=== PATIENT | female | born 1990 | race African-American/Black ===

== ENCOUNTER 2016-12-06 19:07 | Emergency (ER) | payer OTHER ==
[~2016-12-06] VITALS: Ht 162.6 cm; Wt 91.7 kg
[2016-12-06 19:12] VITALS: BP 134/78
[2016-12-06] MEDS ORDERED: NACL 0.9% 1,000 ML IV SCH (19:38)
[2016-12-06] MEDS ORDERED: MORPHINE SULFATE 4 MG/ML SYR IVP ONE (19:40)
[2016-12-06] MEDS ORDERED: ONDANSETRON 4 MG/2 ML VIAL IVP ONE (19:40)
[2016-12-06 20:15] LABS: EOSINOPHILS # (AUTO) 0.1 K/uL (0-0.4); HEMOGLOBIN 13.7 g/dL (12.0-16.0); MONOCYTES # (AUTO) 0.7 K/uL (0.8-1.0); RED CELL DISTRIBUTION WIDTH 13.1 % (11.6-13.7)
[2016-12-06 20:21] LABS: ANION GAP 12.2 (8-16); BASOPHILS # (AUTO) 0.3 K/uL (0.00-0.22); BASOPHILS % (AUTO) 3.8 % (0.0-2.0); CARBON DIOXIDE 28.1 mmol/L (21-32); CREATININE 0.9 mg/dL (0.6-1.3); EOSINOPHILS % (AUTO) 1.4 % (0.0-4.0); HEMATOCRIT 41.5 % (36-48); LYMPHOCYTES # (AUTO) 4.1 K/uL (2.5-16.5); LYMPHOCYTES % (AUTO) 43.9 % (20.5-51.1); MEAN CORPUSCULAR HEMOGLOBIN 26 pg (27-31); MEAN CORPUSCULAR HGB CONC 33 g/dL (33-37); MEAN CORPUSCULAR VOLUME 78 fL (80-94); MONOCYTES % (AUTO) 7.8 % (1.7-9.3); NEUTROPHILS # (AUTO) 3.9 K/uL (1.8-7.7); NEUTROPHILS % (AUTO) 43.1 % (42.2-75.2); PLATELET COUNT (AUTO) 353 K/uL (140-450); POTASSIUM 4.3 mmol/L (3.5-5.1); RED BLOOD CELL COUNT(AUTO) 5.33 MIL/uL (4.20-5.40); WHITE BLOOD COUNT (AUTO) 9.1 K/uL (4.8-10.8)
[2016-12-06 20:27] LABS: ALBUMIN 3.4 g/dL (3.4-5.0); TOTAL BILIRUBIN 0.2 mg/dL (0.0-1.0)
[2016-12-06 21:08] VITALS: BP 120/76
== END 2016-12-06 21:08 | disposition home or self-care (01) ==
LOC: MED 19:07
DX: R10.30 Lower abdominal pain, unspecified (principal); R11.2 Nausea with vomiting, unspecified; R51 Headache; M79.1 Myalgia; R53.1 Weakness; Z88.6 Allergy status to analgesic agent
CPT/HCPCS: 36415; 80053; 81002; 81025; 82550; 83690; 85025; 96361; 96374; 96375; 99284; J2270; J2405

== ENCOUNTER 2017-04-17 15:04 | Emergency (ER) | payer OTHER ==
[~2017-04-17] VITALS: Ht 162.6 cm; Wt 86.2 kg
[2017-04-17 15:42] VITALS: BP 127/65
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
--- NOTE | 2017-04-17 17:30 | NUR ---
PATIENT AMBULATED TO OF 2
--- NOTE | 2017-04-17 18:05 | NUR ---
ALAYNA BELTRAN ER MD BYNUM
--- NOTE | 2017-04-17 18:20 | NUR ---
PT REQUESTING PAIN MEDICATION FOR HEADACHE. DR RICHEY NOTIFIED, NO ORDERS RECEIVED.
--- NOTE | 2017-04-17 19:00 | NUR ---
RECEIVED REPORT REPORT FROM PADMINI RN, TRANSFER OF CARE AT THIS TIME.
[2017-04-17 20:00] VITALS: BP 132/72
--- NOTE | 2017-04-17 20:00 | NUR ---
Patient discharged with v/s stable. Written and verbal after care instructions given and explained. Patient alert, oriented and verbalized understanding of instructions. Ambulatory with steady gait. All questions addressed prior to discharge. ID band removed. Patient advised to follow up with PMD. Rx of VALTREZ 1G AND FIORICET [id number] given. Patient educated on indication of medication including possible reaction and side effects. Opportunity to ask questions provided and answered.
== END 2017-04-17 20:00 | disposition home or self-care (01) ==
LOC: MED 15:04
DX: K12.0 Recurrent oral aphthae (principal); G44.209 Tension-type headache, unspecified, not intractable; R03.0 Elevated blood-pressure reading, without diagnosis of hypertension; Z88.5 Allergy status to narcotic agent
CPT/HCPCS: 99283

== ENCOUNTER 2017-06-07 12:00 | Emergency (ER) | payer OTHER ==
[~2017-06-07] VITALS: Ht 160 cm; Wt 89.4 kg
[2017-06-07 12:04] VITALS: BP 137/83
--- NOTE | 2017-06-07 12:09 | NUR ---
Pt taken to bed 4.
--- NOTE | 2017-06-07 12:10 | NUR ---
PATIENT PRESENTS TO ED WITH PRODUCTIVE COUGHING X 1 WEEK AND INTERMITTEN FEVER AND CHILLS X 2 WEEKS . PT.DENIES N/V/D; SKIN IS PINK/WARM/DRY; AAOX4 WITH EVEN AND STEADY GAIT; LUNGS CLEAR BL; HR EVEN AND REGULAR; PT DENIES ANY CP, SOB, OR AT THIS TIME; PATIENT STATES PAIN OF 0/10 AT THIS TIME; VSS; PATIENT POSITIONED FOR COMFORT; HOB ELEVATED; BEDRAILS UP X2; BED DOWN. ER MD MADE AWARE OF PT STATUS.
[2017-06-07 12:36] VITALS: BP 115/62
--- NOTE | 2017-06-07 12:37 | NUR ---
Patient discharged with v/s stable. Written and verbal after care instructions given and explained. Patient alert, oriented and verbalized understanding of instructions. Ambulatory with steady gait. All questions addressed prior to discharge. ID band removed. Patient advised to follow up with PMD. Rx of FLUNOASE AND AMOXICILLIN given. Patient educated on indication of medication including possible reaction and side effects. Opportunity to ask questions provided and answered.
== END 2017-06-07 12:37 | disposition home or self-care (01) ==
LOC: MED 12:00
DX: J06.9 Acute upper respiratory infection, unspecified (principal); H66.91 Otitis media, unspecified, right ear; Z88.5 Allergy status to narcotic agent
CPT/HCPCS: 99283

== ENCOUNTER 2017-09-12 21:22 | Emergency (ER) | payer OTHER ==
[~2017-09-12] VITALS: Ht 162.6 cm; Wt 79.4 kg
[2017-09-12 21:29] VITALS: BP 126/89
[2017-09-12 22:36] VITALS: BP 130/73
== END 2017-09-12 22:36 | disposition home or self-care (01) ==
LOC: MED 21:22
DX: K04.7 Periapical abscess without sinus (principal); Z88.6 Allergy status to analgesic agent
CPT/HCPCS: 99283

== ENCOUNTER 2018-01-31 09:05 | Emergency (ER) | payer OTHER ==
[~2018-01-31] VITALS: Ht 160 cm; Wt 76.7 kg
[2018-01-31 09:12] VITALS: BP 121/75
--- NOTE | 2018-01-31 09:21 | NUR ---
PT AMBULATED TO BED 7.
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
[2018-01-31] MEDS ORDERED: NACL 0.9% 1,000 ML IV ONE (10:10)
--- NOTE | 2018-01-31 10:23 | NUR ---
Patient to xray via w/c accompanied by nuclear plant instrument technician
[2018-01-31 10:30] LABS: BASOPHILS # (AUTO) 0.1 K/uL (0.00-0.22); BASOPHILS % (AUTO) 1.1 % (0.0-2.0); EOSINOPHILS # (AUTO) 0.1 K/uL (0-0.4); EOSINOPHILS % (AUTO) 1.4 % (0.0-4.0); HEMATOCRIT 43.8 % (36-48); HEMOGLOBIN 14.3 g/dL (12.0-16.0); LYMPHOCYTES # (AUTO) 2.2 K/uL (2.5-16.5); LYMPHOCYTES % (AUTO) 45.8 % (20.5-51.1); MEAN CORPUSCULAR HEMOGLOBIN 26 pg (27-31); MEAN CORPUSCULAR HGB CONC 33 g/dL (33-37); MEAN CORPUSCULAR VOLUME 79.3 fL (80-94); MONOCYTES # (AUTO) 0.4 K/uL (0.8-1.0); MONOCYTES % (AUTO) 7.3 % (1.7-9.3); NEUTROPHILS # (AUTO) 2.2 K/uL (1.8-7.7); NEUTROPHILS % (AUTO) 44.4 % (42.2-75.2); PLATELET COUNT (AUTO) 307 K/uL (140-450); RED BLOOD CELL COUNT(AUTO) 5.53 MIL/uL (4.20-5.40); RED CELL DISTRIBUTION WIDTH 13.3 % (11.6-13.7); WHITE BLOOD COUNT (AUTO) 4.9 K/uL (4.8-10.8)
--- NOTE | 2018-01-31 10:44 | NUR ---
BACK FROM X-RAY.
[2018-01-31 10:45] LABS: ANION GAP 10.8 (8-16); CARBON DIOXIDE 29.2 mmol/L (21-32); CREATININE 0.8 mg/dL (0.6-1.3)
[2018-01-31 10:52] LABS: ALBUMIN 3.5 g/dL (3.4-5.0); TOTAL BILIRUBIN 0.4 mg/dL (0.0-1.0)
--- NOTE | 2018-01-31 11:08 | NUR ---
PT STATED THAT SHE FEELS BETTER. STATED NO NAUSEA OR PAIN AT THIS TIME. LYING IN BED COMFORTABLY. NO CHANGE IN LOC. WILL CONTINUE TO MONITOR.
--- NOTE | 2018-01-31 12:19 | NUR ---
Patient discharged with v/s stable. Written and verbal after care instructions given and explained. Patient verbalized understanding. Ambulatory with steady gait. All questions addressed prior to discharge. Advised to follow up with PMD.
[2018-01-31 12:20] VITALS: BP 115/68
== END 2018-01-31 12:19 | disposition home or self-care (01) ==
LOC: MED 09:05
DX: J02.9 Acute pharyngitis, unspecified (principal); R11.2 Nausea with vomiting, unspecified; Z88.6 Allergy status to analgesic agent
CPT/HCPCS: 36415; 74022; 80053; 81002; 81025; 85025; 87804; 96360; 99285; J7030

== ENCOUNTER 2018-03-21 00:14 | Emergency (ER) | payer OTHER ==
[~2018-03-21] VITALS: Ht 160 cm; Wt 82.6 kg
[2018-03-21 00:22] VITALS: BP 119/65
--- NOTE | 2018-03-21 00:25 | NUR ---
PT AMBULATED TO BED 6
--- NOTE | 2018-03-21 00:35 | NUR ---
LEFT EAR PAIN. NO REDNESS OR DRAINAGE NOTED. PAIN ACHING 4/10 NOT RADIATING AT THIS TIME. DENIES N/V/D.
--- NOTE | 2018-03-21 01:08 | NUR ---
Patient discharged with v/s stable. Written and verbal after care instructions given and explained. Patient alert, oriented and verbalized understanding of instructions. Ambulatory with steady gait. All questions addressed prior to discharge. ID band removed. Patient advised to follow up with PMD. Rx of Wheeler, Amoxicillin, and Naprosyn given. Patient educated on indication of medication including possible reaction and side effects. Opportunity to ask questions provided and answered.
[2018-03-21 01:12] VITALS: BP 119/65
== END 2018-03-21 01:08 | disposition home or self-care (01) ==
LOC: MED 00:14
DX: H66.92 Otitis media, unspecified, left ear (principal); Z88.6 Allergy status to analgesic agent
CPT/HCPCS: 99283

== ENCOUNTER 2018-11-27 02:45 | Emergency (ER) | payer OTHER ==
[~2018-11-27] VITALS: Ht 162.6 cm; Wt 80.3 kg
[2018-11-27 02:49] VITALS: BP 143/87
--- NOTE | 2018-11-27 02:56 | NUR ---
PT AMBULATED TO ER BED 02
[2018-11-27] MEDS ORDERED: KETOROLAC 60 MG/2 ML VIAL IM ONE (03:00)
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
--- NOTE | 2018-11-27 03:47 | NUR ---
SHORT FINGER SPLINT APPLIED TO PT L 1ST FINGER. +SM
[2018-11-27 04:21] VITALS: BP 122/77
== END 2018-11-27 04:30 | disposition home or self-care (01) ==
LOC: MED 02:45
DX: S60.022A Contusion of left index finger without damage to nail, initial encounter (principal); Z88.6 Allergy status to analgesic agent; W20.8XXA Other cause of strike by thrown, projected or falling object, initial encounter; Y93.89 Activity, other specified; Y92.89 Other specified places as the place of occurrence of the external cause; Y99.8 Other external cause status
CPT/HCPCS: 29130; 96372; 99283; J1885

== ENCOUNTER 2019-03-18 18:28 | Emergency (ER) | payer OTHER ==
[~2019-03-18] VITALS: Ht 160 cm; Wt 78.9 kg
[2019-03-18 18:49] VITALS: BP 127/46
--- NOTE | 2019-03-18 18:55 | NUR ---
Triage Completed, ambulated with steady gait out to ER waiting room.
--- NOTE | 2019-03-18 19:18 | NUR ---
pt ambulated to er bed 05
--- NOTE | 2019-03-18 19:18 | NUR ---
ASSESSMENT COMPLETED: PATIENT REPORTS FEVER CHILLS, BODY ACHES, NON-PRODUCTIVE COUGH, CHEST PAIN, BACK PAIN AND HEADACHE STARTING TODAY. LUNGS SOUNDS CLEAR. ABD SOFT AND NON-TENDER. PATIENT STATES NO HISTORY. PATIENT TEMP AT TIME OF ASSESSMENT 100.7. INSTRUCTED TO REMOVE BLANKET AND SWEATSHIRT. PATIENT DENIES HISTORY OR OTHER SYMPTOMS AT THIS TIME. PATIENT SITTING UP IN BED, BED LOW AND LOCKED.
[2019-03-18] MEDS ORDERED: ACETAMINOPHEN 325 MG TAB PO ONE (19:40)
[2019-03-18] MEDS ORDERED: ALBUTEROL 0.083% 2.5 MG/3 ML NEBU INH ONE (20:10)
[2019-03-18] MEDS ORDERED: NACL 0.9% 1,000 ML IV ONE (20:10)
[2019-03-18] MEDS ORDERED: IBUPROFEN 800 MG TAB PO ONE (20:10)
--- NOTE | 2019-03-18 21:40 | NUR ---
Patient laying in bed. No fever at this time. Patient states she is feeling much better.
[2019-03-18 21:43] LABS: BASOPHILS % (AUTO) 0.2 % (0.0-2.0); EOSINOPHILS % (AUTO) 0.6 % (0.0-4.0); HEMOGLOBIN 13.2 g/dL (12.0-16.0); LYMPHOCYTES # (AUTO) 0.4 K/uL (2.5-16.5); LYMPHOCYTES % (AUTO) 8.8 % (20.5-51.1); MEAN CORPUSCULAR HEMOGLOBIN 26 pg (27-31); MEAN CORPUSCULAR HGB CONC 32 g/dL (33-37); MEAN CORPUSCULAR VOLUME 79.1 fL (80-94); MONOCYTES # (AUTO) 0.9 K/uL (0.8-1.0); NEUTROPHILS # (AUTO) 3.7 K/uL (1.8-7.7); NEUTROPHILS % (AUTO) 73.4 % (42.2-75.2); PLATELET COUNT (AUTO) 287 K/uL (140-450); RED BLOOD CELL COUNT(AUTO) 5.19 MIL/uL (4.20-5.40); RED CELL DISTRIBUTION WIDTH 13.2 % (11.6-13.7)
[2019-03-18 21:53] LABS: APPEARANCE,URINE CLEAR (CLEAR); BILIRUBIN,URINE NEGATIVE (NEGATIVE); BLOOD, URINE NEGATIVE (NEGATIVE); COLOR,URINE YELLOW (YELLOW); LEUKOCYTE ESTERASE ,URINE NEGATIVE (NEGATIVE); NITRITE, URINE NEGATIVE (NEGATIVE); PH,URINE 6.5 (5.0-9.0); UGLUCOSE NEGATIVE (NEGATIVE)
[2019-03-18 21:56] LABS: ANION GAP 13.5 (8-16); CREATININE 0.8 mg/dL (0.6-1.3); POTASSIUM 3.5 mmol/L (3.5-5.1)
[2019-03-18 22:01] LABS: ALBUMIN 3.5 g/dL (3.4-5.0); TOTAL BILIRUBIN 0.3 mg/dL (0.0-1.0)
[2019-03-18 23:26] VITALS: BP 120/56
== END 2019-03-18 23:26 | disposition home or self-care (01) ==
LOC: MED 18:28
DX: B34.9 Viral infection, unspecified (principal)
CPT/HCPCS: 36415; 71045; 80053; 81003; 81025; 85025; 87081; 87804; 94640; 99284; J7030; J7613; Q0092

== ENCOUNTER 2019-05-16 14:45 | Emergency (ER) | payer OTHER ==
[~2019-05-16] VITALS: Ht 160 cm; Wt 77.1 kg
[2019-05-16 15:09] VITALS: BP 117/73
--- NOTE | 2019-05-16 15:11 | NUR ---
TRIAGE COMPLETE. VSS. TO LOBBY AWAITNG BED IN ED.
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
[2019-05-16] MEDS ORDERED: KETOROLAC 60 MG/2 ML VIAL IM ONE (18:30)
[2019-05-16 19:10] VITALS: BP 118/71
--- NOTE | 2019-05-16 19:10 | NUR ---
Patient discharged with v/s stable. Written and verbal after care instructions given and explained. Patient alert, oriented and verbalized understanding of instructions. Ambulatory with steady gait. All questions addressed prior to discharge. ID band removed. Patient advised to follow up with PMD. Rx of NORCO,MOTRIN given. Patient educated on indication of medication including possible reaction and side effects. Opportunity to ask questions provided and answered.
== END 2019-05-16 19:10 | disposition home or self-care (01) ==
LOC: MED 14:45
DX: M25.532 Pain in left wrist (principal); M25.562 Pain in left knee; M54.2 Cervicalgia; Z88.6 Allergy status to analgesic agent; V49.49XA Driver injured in collision with other motor vehicles in traffic accident, initial encounter; Y93.89 Activity, other specified; Y92.89 Other specified places as the place of occurrence of the external cause; Y99.8 Other external cause status
CPT/HCPCS: 73030; 73110; 73562; 99284; J1885

== ENCOUNTER 2020-01-09 07:38 | Emergency (ER) | payer OTHER, SELFPAY ==
[~2020-01-09] VITALS: Ht 160 cm; Wt 79.4 kg
[2020-01-09 07:46] VITALS: BP 137/76
[2020-01-09] MEDS ORDERED: IPRATROPIUM 0.02% 0.5 MG/2.5 ML NEBU INH ONE (08:00)
[2020-01-09] MEDS ORDERED: predniSONE 20 MG TAB PO ONE (08:00)
[2020-01-09] MEDS ORDERED: ALBUTEROL 0.083% 2.5 MG/3 ML NEBU INH ONE (08:00)
[2020-01-09 09:01] VITALS: BP 129/82
[2020-01-09] MEDS ORDERED: DOPPLER MC ONE (09:03)
== END 2020-01-09 09:01 | disposition home or self-care (01) ==
LOC: MED 07:38
DX: J45.901 Unspecified asthma with (acute) exacerbation (principal); R09.89 Other specified symptoms and signs involving the circulatory and respiratory systems; R03.0 Elevated blood-pressure reading, without diagnosis of hypertension; Z88.6 Allergy status to analgesic agent
CPT/HCPCS: 99283; J7512; J7613; J7644; 94640

== ENCOUNTER 2020-02-09 16:22 | Emergency (ER) | payer OTHER, SELFPAY ==
[~2020-02-09] VITALS: Ht 162.6 cm; Wt 80.7 kg
[2020-02-09 16:29] VITALS: BP 123/75
[2020-02-09] MEDS ORDERED: HYDROcodone/APAP 5/325 MG 1 TAB TAB PO ONE (16:30)
--- NOTE | 2020-02-09 16:31 | NUR ---
X-Ray at bedside.
--- NOTE | 2020-02-09 16:35 | NUR ---
Pt c/o lesions on the left plantar area s/p step on yard rake 18 mins ago. Pt reports having sharp/throbbing pain on the lesions on 7/10 intensity. Also reports had Tdap vacc in 2018. There is no active bleeding on the lesions on pt's left plantar area. pmh: anxiety, athma Meds: Albuterol, Seroquel
[2020-02-09] MEDS ORDERED: BACITRACIN OINT 500 UNITS/GM PKT TP ONE ×2 (17:28→17:30)
[2020-02-09 17:46] VITALS: BP 118/68
--- NOTE | 2020-02-09 17:46 | NUR ---
Note enrike in EDM - 02/09/20 at 1752 by CRISTINA Patient discharged with v/s stable. Written and verbal after care instructions given and explained. Patient alert, oriented and verbalized understanding of instructions. Ambulatory with steady gait. All questions addressed prior to discharge. ID band removed. Patient advised to follow up with PMD. Rx of Ibuprofen given. Patient educated on indication of medication including possible reaction and side effects. Opportunity to ask questions provided and answered.
--- NOTE | 2020-02-09 17:46 | NUR ---
Patient discharged with v/s stable. Written and verbal after care instructions given and explained. Patient alert, oriented and verbalized understanding of instructions. WC assited to lobby. All questions addressed prior to discharge. ID band removed. Patient advised to follow up with PMD. Rx of Ibuprofen given. Patient educated on indication of medication including possible reaction and side effects. Opportunity to ask questions provided and answered.
== END 2020-02-09 17:46 | disposition home or self-care (01) ==
LOC: MED 16:22
DX: S91.312A Laceration without foreign body, left foot, initial encounter (principal); J45.909 Unspecified asthma, uncomplicated; Z88.6 Allergy status to analgesic agent; X58.XXXA Exposure to other specified factors, initial encounter; Y93.89 Activity, other specified; Y92.89 Other specified places as the place of occurrence of the external cause; Y99.8 Other external cause status
CPT/HCPCS: 73620; 99283

== ENCOUNTER 2021-09-03 16:22 | Emergency (ER) | payer OTHER ==
[~2021-09-03] VITALS: Ht 162.6 cm; Wt 90.8 kg
[2021-09-03 16:26] VITALS: BP 125/67
--- NOTE | 2021-09-03 16:33 | NUR ---
Nivia calvert in [facility] - 09/03/21 at 1638 by [email or web address] PT AMB TO BED 3.
--- NOTE | 2021-09-03 16:35 | NUR ---
[facility]: RIGHT EYE 30/30, LEFT EYE 20/30, BOTH EYES 20/30
--- NOTE | 2021-09-03 16:35 | NUR ---
PT AMB TO BED 1.
[2021-09-03] MEDS ORDERED: VIGOS OP ×2 (16:45→17:01)
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
[2021-09-03 17:05] VITALS: BP 122/68
--- NOTE | 2021-09-03 17:06 | NUR ---
Patient discharged with v/s stable. Written and verbal after care instructions given and explained. Patient alert, oriented and verbalized understanding of instructions. Ambulatory with steady gait. All questions addressed prior to discharge. ID band removed. Patient advised to follow up with PMD. Rx of VIGAMOX given. Patient educated on indication of medication including possible reaction and side effects. Opportunity to ask questions provided and answered.
== END 2021-09-03 17:05 | disposition home or self-care (01) ==
LOC: MED 16:22
DX: H10.9 Unspecified conjunctivitis (principal)
CPT/HCPCS: 99283

== ENCOUNTER 2023-06-08 12:55 | Emergency (ER) | payer OTHER ==
[~2023-06-08] VITALS: Ht 162.6 cm; Wt 96.6 kg
[~2023-06-08 12:55] MED LIST: VIGOS OP
[2023-06-08 13:25] VITALS: BP 117/86; PULSE 103; RESP 22; TEMP 98.2; O2SAT 99
[2023-06-08 13:39] VITALS: PULSE 95; PULSE 97; RESP 24; O2SAT 95
[2023-06-08] MEDS: ALBUTEROL SULFATE/IPRATROPIU 3 ML SOL IH ONE (13:41)
[2023-06-08 13:50] VITALS: PULSE 68; RESP 20; O2SAT 99
[2023-06-08] MEDS ORDERED: ALBUTEROL SULFATE/IPRATROPIU 3 ML SOL IH ONE (13:50)
[2023-06-08] MEDS: predniSONE 20 MG TAB PO ONE (14:08)
[2023-06-08 15:55] VITALS: PULSE 87; RESP 20; O2SAT 96
[2023-06-08] MEDS ORDERED: ALBUTEROL 0.083% 2.5 MG/3 ML NEBU INH ONE (15:55)
[2023-06-08] MEDS ORDERED: IPRATROPIUM 0.02% 0.5 MG/2.5 ML NEBU INH ONE (15:55)
[2023-06-08] MEDS: IPRATROPIUM 0.02% 0.5 MG/2.5 ML NEBU INH ONE (16:07)
[2023-06-08] MEDS: ALBUTEROL 0.083% 2.5 MG/3 ML NEBU INH ONE (16:08)
[2023-06-08] MEDS ORDERED: PRED20TA5 PO (17:15)
[2023-06-08] MEDS ORDERED: BUDE1AER2 IH (17:15)
[2023-06-08 17:30] VITALS: BP 142/73; PULSE 70; RESP 16; TEMP 97.2; O2SAT 98
== END 2023-06-08 17:30 | disposition home or self-care (01) ==
LOC: MED 12:55
DX: J45.901 Unspecified asthma with (acute) exacerbation (principal); E03.9 Hypothyroidism, unspecified; K21.9 Gastro-esophageal reflux disease without esophagitis; Z79.899 Other long term (current) drug therapy; Z88.6 Allergy status to analgesic agent; Z91.011 Allergy to milk products
CPT/HCPCS: 94640; 99285; J7512; J7613; J7644